=== PATIENT | female | born 1990 | race Caucasian/White ===

== ENCOUNTER 2018-02-28 19:49 | Emergency (ER) | payer OTHER ==
[2018-02-28 20:05] VITALS: BP 124/77; PULSE 85; TEMP 98.6; BMI 26.6
--- NOTE | 2018-02-28 20:06 | PDOC ---
Rapid Medical Evaluation Time Seen by Provider: 02/28/18 20:02 Medical Evaluation: Allergies Allergy/AdvReac Type Severity Reaction Status Date / Time No Known Allergies Allergy Verified 01/29/16 21:14 02/28/18 20:02 The patient presents with a chief complaint of: sinus pressure nasal congestion now pressure to cheeks and teeth, no fever I have performed a brief in-person evaluation of this patient; Pertinent physical exam findings: vss, no frontal sinus tenderness, pharynx clear I have ordered the following: none The patient will proceed to the ED for further evaluation. Discharge Disposition - Diagnosis Nasal congestion - Referrals - Patient Instructions - Post Discharge Activity
[2018-02-28] MEDS ORDERED: IBUPROFEN 600 MG TABLET (FP) PO ONE ×2 (20:38→20:46)
[2018-02-28] MEDS ORDERED: PSEUDOEPHEDRINE HCL 30 MG TABLET PO ONE (20:45)
--- NOTE | 2018-02-28 21:30 | PDOC ---
History of Present Illness - General Chief Complaint: Cold Symptoms Stated Complaint: FACIAL PAIN/FEVER Time Seen by Provider: 02/28/18 20:02 History Source: Patient Exam Limitations: No Limitations Past History - Past Medical History Allergies/Adverse Reactions: Allergies Allergy/AdvReac Type Severity Reaction Status Date / Time No Known Allergies Allergy Verified 02/28/18 20:05 Home Medications: Ambulatory Orders Fluticasone Prop 0.05% Nasal [Flonase -] 1 - 2 spray NS DAILY #1 spray.pump Pseudoephedrine HCl [Sudafed] 30 mg PO DAILY PRN #20 tablet 02/28/18 Anemia: Yes Asthma: No Cancer: No Cardiac Disorders: No Diabetes: No HTN: No Seizures: No Thyroid Disease: No - Suicide/Smoking/Psychosocial Hx Smoking History: Never smoked Have you smoked in the past 12 months: No Information on smoking cessation initiated: No Hx Alcohol Use: No Drug/Substance Use Hx: No Hx Substance Use Treatment: No *Physical Exam - Vital Signs Last Vital Signs Temp Pulse Resp BP Pulse Ox 98.6 F 85 18 124/77 100 02/28/18 20:01 02/28/18 20:01 02/28/18 20:01 02/28/18 20:01 02/28/18 20:01 - Physical Exam HEENT: positive: SAUL, Normal Voice, Nasal Congestion, Rhinorrhea, Sinus Tenderness (Along R maxillary sinus). negative: Muffled/Hoarse voice, Tonsillar Exudate, Tonsillar Erythema, TM Bulging, TM Dull, TM Erythema Neck: positive: Supple Respiratory/Chest: positive: Lungs Clear, Normal Breath Sounds. negative: Respiratory Distress Cardiovascular: positive: Regular Rhythm, Regular Rate, S1, S2. negative: Murmur Integumentary: positive: Normal Color. negative: Rash Neurologic: positive: Fully Oriented, Alert, Normal Mood/Affect Moderate Sedation - Procedure Monitoring Vital Signs: Procedure Monitoring Vital Signs Temperature 98.6 F 02/28/18 20:01 Pulse Rate 85 02/28/18 20:01 Respiratory Rate 18 02/28/18 20:01 Blood Pressure 124/77 02/28/18 20:01 O2 Sat by Pulse Oximetry (%) 100 02/28/18 20:01 ED Treatment Course - Medications Given in the ED: ED Medications Discontinued Medications Generic Name Dose Route Start Last Admin Trade Name Freq PRN Reason Stop Dose Admin Ibuprofen 600 mg 02/28/18 20:38 02/28/18 20:47 Motrin - PO 02/28/18 20:39 600 mg ONCE ONE Administration Pseudoephedrine HCl 30 mg 02/28/18 20:45 02/28/18 20:56 Sudafed - PO 02/28/18 20:46 30 mg ONCE ONE Administration Medical Decision Making - Medical Decision Making 27 y/o F with no sig pmh presents with congestion since 4 days ago, now radiating to R ear and teeth from today. Also has mild dry cough and rhinorrhea. Has been using Tylenol, vicks, Theraflu, humidifier and inhaling steam without much relief of sxs. Denies fever, sob, cp, abd pain, n/v PE consistent with likely viral sinusitis Given Sudafed, Motrin with improvement in sxs Supportive care discussed Stable for d/c 02/28/18 21:21 *DC/Admit/Observation/Transfer Diagnosis at time of Disposition: Nasal congestion, Viral sinusitis - Discharge Dispostion Disposition: HOME Condition at time of disposition: Improved Decision to Admit order: No - Prescriptions Prescriptions: Fluticasone Prop 0.05% Nasal [Flonase -] 1 - 2 spray NS DAILY #1 spray.pump Pseudoephedrine HCl [Sudafed] 30 mg PO DAILY PRN #20 tablet PRN Reason: congestion - Referrals - Patient Instructions Printed Discharge Instructions: DI for Sinusitis Additional Instructions: Thank you for choosing [facility]. It was a pleasure taking care of you. You may take Tylenol 650 mg or Motrin 600 mg every 4 hours by mouth as needed for mild to moderate pain. Take Motrin with food. Do not take more than 4000 mg of Tylenol in 1 day. Use saline nasal spray daily in each nose Also use Nedi-pot to help alleviate congestion Use Flonase as directed - use for 1 week Use Sudafed as needed to help relieve congestion Return to the Emergency Department if your symptoms worsen or persist or any other concerning symptoms. - Post Discharge Activity
== END 2018-02-28 21:41 | disposition home or self-care (01) ==
LOC: JERFT 19:49
DX: O60.00 Preterm labor without delivery, unspecified trimester (principal)
CPT/HCPCS: 99281-25

== ENCOUNTER 2019-04-17 14:03 | Emergency (ER) | payer OTHER ==
--- NOTE | 2019-04-17 14:21 | PDOC ---
Rapid Medical Evaluation Chief Complaint: Vaginal Bleeding Time Seen by Provider: 04/17/19 14:19 Medical Evaluation: Allergies Allergy/AdvReac Type Severity Reaction Status Date / Time No Known Allergies Allergy Verified 02/28/18 20:05 04/17/19 14:19 29 year old female c/o vaginal spotting ? after urinating. now with back pain. denies urinary symptoms, flank pain LMP: 11/28/2018 Pe: PATIENT alert ox3 P: UA Urine culture Discharge Disposition - Diagnosis Vaginal bleeding - Referrals - Patient Instructions - Post Discharge Activity
[2019-04-17 14:24] VITALS: TEMP 98.3; BMI 32.2
[2019-04-17 15:54] LABS: EPI CELLS 2.6 /HPF (0-5/HPF); HYALINE CASTS 1 /lpf (0-8); PH,URINE 5.5 (5.0-8.0); URINE APPEARANCE CLEAR; URINE BACTERIA 127.8 /hpf (NEGATIVE); URINE BILIRUBIN NEGATIVE (NEGATIVE); URINE COLOR YELLOW; URINE GLUCOSE (UA) NEGATIVE (NEGATIVE); URINE KETONE NEGATIVE (NEGATIVE); URINE LEUK ESTERASE TRACE (NEGATIVE); URINE NITRITE NEGATIVE (NEGATIVE); URINE PROTEIN NEGATIVE (NEGATIVE); URINE RBC 4 /hpf (0-4); URINE UROBILINOGEN 0.2 mg/dL (0.2-1.0); URINE WBC 2 /hpf (0-5)
--- NOTE | 2019-04-17 18:29 | PDOC ---
Documentation entered by Shyla Davidson SCRIBE, acting as scribe for Kelvin Evangelista MD. Kelvin Evangelista MD: This documentation has been prepared by the Stuart angela Nirvannie, SCRIBE, under my direction and personally reviewed by me in its entirety. I confirm that the documentation accurately reflects all work, treatment, procedures, and medical decision making performed by me. History of Present Illness - General Chief Complaint: Vaginal Bleeding Stated Complaint: VAGINAL BLEEDING Time Seen by Provider: 04/17/19 14:19 History Source: Patient Exam Limitations: No Limitations - History of Present Illness Initial Comments: 04/17/19 16:20 The patient is a 29 year old 19 weeks female, with a significant past medical history of, who presents to the emergency department s/p episode of vaginal bleeding. As per patient, she went to the bathroom at work and upon wiping she noticed a streak of blood. 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 While in the ED, patient notes there was not any blood on her pad and mild lower back pain. Patient notes white vaginal discharge throughout her pregnancies. She denies recent fevers, chills, headache or dizziness. She denies recent nausea, vomit, diarrhea or constipation. She denies recent dysuria, frequency, or urgency.. She denies recent chest pain or shortness of breath. Allergies: [facility] Primary Care Physician: Dr. Guzman Past History - Past Medical History Allergies/Adverse Reactions: Allergies Allergy/AdvReac Type Severity Reaction Status Date / Time No Known Allergies Allergy Verified 02/28/18 20:05 Home Medications: Ambulatory Orders Fluticasone Prop 0.05% Nasal [Flonase -] 1 - 2 spray NS DAILY #1 spray.pump Pseudoephedrine HCl [Sudafed] 30 mg PO DAILY PRN #20 tablet 02/28/18 Cephalexin Monohydrate [Keflex -] 500 mg PO BID #14 capsule 04/17/19 Clotrimazole [[id number]-6] 45 gm VG DAILY #1 cream.appl 04/17/19 Anemia: Yes Asthma: No Cancer: No Cardiac Disorders: No COPD: No Diabetes: No HTN: No Seizures: No Thyroid Disease: No - Psycho Social/Smoking Cessation Hx Smoking History: Never smoked Have you smoked in the past 12 months: No Information on smoking cessation initiated: No Hx Alcohol Use: No Drug/Substance Use Hx: No Hx Substance Use Treatment: No Review of Systems - Review of Systems Able to Perform ROS?: Yes Comments:: 04/17/19 16:20 CONSTITUTIONAL: No reported: Fever, Chills, Diaphoresis, Generalized Weakness, Malaise, Loss of Appetite HEENT: No reported: Rhinorrhea, Nasal Congestion, Throat Pain, Throat Swelling, Difficulty Swallowing, Mouth Swelling, Ear Pain, Eye Pain, Visual Changes CARDIOVASCULAR: No reported: Chest Pain, Syncope, Palpitations, Irregular Heart Rate, Lightheadedness, Peripheral Edema RESPIRATORY: No reported: Cough, Shortness of Breath, SOB with Exertion, Orthopnea, Wheezing , Stridor, Hemoptysis GASTROINTESTINAL: No reported: Abdominal pain, Abdominal Distension, Nausea, Vomiting, Diarrhea, Constipation, Melena, Hematochezia GENITOURINARY: Present: Vaginal spotting. No reported: Dysuria, Frequency, Urgency, Hesitancy, Flank Pain, Genital Pain MUSCULOSKELETAL: Present: Back pain. No reported: Myalgia, Arthralgia, Joint Swelling, Neck Pain SKIN: No reported: Rash, Itching, Pallor HEMEATOLOGIC/IMMUNOLOGIC: No reported: Easy Bleeding, Easy Bruising, Lymphadenopathy, Frequent infections ENDOCRINE: No reported: Unexplained Weight Gain, Unexplained Weight Loss, Heat Intolerance , Cold Intolerance NEUROLOGIC: No reported: Headache, Focal Weakness, Paresthesias, Vertigo, Lightheadedness, Unsteady Gait, Seizure, Mental Status Changes, Incontinence PSYCHIATRIC: No reported: Anxiety, Depression All Other Systems: Reviewed and Negative *Physical Exam - Vital Signs Last Vital Signs Temp Pulse Resp BP Pulse Ox 98.3 F 75 18 111/65 100 04/17/19 14:18 04/17/19 14:18 04/17/19 14:18 04/17/19 14:18 04/17/19 14:18 - Physical Exam 04/17/19 16:22 GENERAL: The patient is awake, alert, and fully oriented, Nontoxic - in no acute distress. HEAD: Normocephalic, atraumatic. EYES: extraocular movements intact, sclera anicteric, conjunctiva clear. ENT: Normal voice, Moist mucous membranes. NECK: Normal range of motion, supple LUNGS: Breath sounds equal, clear to auscultation bilaterally. No wheezes, no rhonchi, no rales. HEART: Regular rate and rhythm, without murmur, rub or gallop. 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 No cyanosis. No erythema, or tenderness. NEUROLOGICAL: No facial assymetry, Normal speech, PSYCH: Normal mood, normal affect. SKIN: Warm, Dry, normal turgor, ED Treatment Course - ADDITIONAL ORDERS Additional order review: Laboratory Results 04/17/19 04/17/19 04/17/19 15:40 15:15 15:15 Beta HCG, Quant 79401.8 Urine Color Yellow Urine Appearance Clear Urine pH 5.5 Ur Specific Gila 1.024 Urine Protein Negative Urine Glucose (UA) Negative Urine Ketones Negative Urine Blood 1+ H Urine Nitrite Negative Urine Bilirubin Negative Urine Urobilinogen 0.2 Ur Leukocyte Esterase Trace Urine WBC (Auto) 2 Urine RBC (Auto) 4 Urine Casts (Auto) 1 U Epithel Cells (Auto) 2.6 Urine Bacteria (Auto) 127.8 Blood Type A POSITIVE Antibody Screen Negative - RADIOLOGY Radiology Studies Ordered: Category Date Time Status LIMITED US [US] Stat Ultrasound 04/17/19 15:01 Completed Medical Decision Making - Medical Decision Making 04/17/19 18:22 The patient's discharge is consistent with a yeast infection we will treat her with Chlortrimazole topically x7 days will also tret pt for a UTI, +true clean catc, +bacteruria The patient's Ultrasound was noted for a single IUP At approximately 20 weeks heart rate of 132 I discussed the physical exam findings, ancillary test results and final diagnoses with the patient. I answered all of the patient's questions. The patient was satisfied with the care received and felt comfortable with the discharge plan and treatment plan. The patient will call their primary care physician within 24 hours to arrange follow-up and will return to the Emergency Department with any new, persistent or worsening symptoms. Discharge - Discharge Information Problems reviewed: Yes Clinical Impression/Diagnosis: Yeast infection Urinary tract infection Qualifiers: Urinary tract infection type: site unspecified Hematuria presence: with hematuria Qualified Code(s): N39.0 - Urinary tract infection, site not specified ; R31.9 - Hematuria, unspecified Qualifiers: Weeks of gestation: 20 weeks Qualified Code(s): Z3A.20 - 20 weeks gestation of Condition: Improved Disposition: HOME - Admission No - Additional Discharge Information Prescriptions: Cephalexin Monohydrate [Keflex -] 500 mg PO BID #14 capsule Clotrimazole [Sajo-Bgmqgato-0] 45 gm VG DAILY #1 cream.appl - Follow up/Referral Referrals: Sharla Guzman NP [Primary Care Provider] - - Patient Discharge Instructions - Post Discharge Activity
[2019-04-17 19:26] VITALS: BP 101/66; PULSE 64
== END 2019-04-17 19:26 | disposition home or self-care (01) ==
LOC: JER 14:03
DX: N39.0 Urinary tract infection, site not specified (principal); B37.9 Candidiasis, unspecified; Z3A.20 20 weeks gestation of pregnancy
CPT/HCPCS: 36415; 76815-TC; 81003; 84702; 86850; 86900; 86901; 87086; 87491; 87591; 99283-25

== ENCOUNTER 2019-08-31 20:49 | Inpatient (IN) | payer OTHER ==
[2019-09-01] MEDS ORDERED: AMPICILLIN - 2 GM in SODIUM CHLORIDE 100 ML IVPB ONE (00:23)
[2019-09-01] MEDS ORDERED: ELECTROLYTE-148 SOLN 1,000 ML IV SCH (00:30)
--- NOTE | 2019-09-01 00:34 | HP ---
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: Alzheimer's, CVA, Dementia, Migraine, Multiple Sclerosis, Peripheral Neuropathy, Parkinson's, Seizure, Syncope, TIA, Vertigo, Other Cardiovascular: No: AFIB, Aneurysm, Aortic Insufficiency, Aortic Stenosis, CAD, CHF, Deep Vein Thrombosis, HTN, Hyperlipdemia, AR, Mitral Insufficiency, Mitral Stenosis, Murmur, Pulmonary Hypertension, Other Pulmonary: No: Asthma, Bronchitis, Cancer, COPD, O2 Dependent, Pneumonia, Previously Intubated, Pulmonary Embolus, Pulmonary Fibrosis, Sleep Apnea, Other Gastrointestinal: No: Ascites, Cancer, Constipation, Crohn's Disease, Diverticulitis, Diverticulosis, Esophageal Varices, Gastritis, GERD, GI Bleed, Hemorrhoids, Hiatal Hernia, Inflamatory Bowel Disease, Irritable Bowel Disease, Pancreatitis, Peptic Ulcer Disease, Ulcerative Colitis, Other Hepatobiliary: No: Cirrhosis, Cholelithiasis, Cholecystitis, Choledocholithiasis, Hepatitis A, Hepatitis B, Hepatitis C, Other Renal/: No: Renal Failure, Renal Inusuff, BPH, Cancer, Hematuria, Hemodialysis, Neurogenic Bladder, Renal Calculi, UTI, Other Reproductive: No: Ectopic , Endometriosis, Fibroids, PID, Polycystic Ovary Syndrome, Postmenopausal, Other ...: 2 ...Para: 1 ...Term: 1 ...: 0 ...Spon : 0 ...Induced : 0 ...Living Children: 1 ...LMP: 11/30/18 ... Weeks Gestation by Dates: 39.1 ...EDC by Dates: 09/06/19 ...EDC by Sono: 09/06/19 Heme/Onc: No: Anemia, B12 Deficiency, Bleeding Disorder, Cancer, Current Chemotherapy, Current Radiation Therapy, Hemochromatosis, Hypercoaguable State, Myeloproliferative Synd, Sickle Cell Disease, Sickle Cell Trait, Thrombocytopenia, Other Infectious Disease: No: AIDS, C-Diff, Herpes Zoster, HIV, MRSA, STD's, Tuberculosis, VREF, Other Psych: No: Addictions, Anxiety, Bipolar, Depression, Panic, Psychosis, Schizophrenia, Other Musculoskeletal: No: Bursitis, Chronic low back pain, Hemiparesis, Hemiplegia, Osteoarthritis, Paraplegia, Other Rheumatology: No: Fibromyalgia, Gout, Lupus, Rheumatoid Arthritis, Sarcoidosis, Vasculitis, Other ENT: No: Allergic Rhinitis, Sinusitis, Other Endocrine: No: Kayode's Disease, [place]'s Disease, Diabetes Insipidus, Diabetes Mellitus, Hyperparathyroidism, Hyperthyroidism, Hypothyroidism, Osteopenia, SIADH, Other Dermatology: No: Basal Cell, Cellulitis, Eczema, Melanoma, Psoriasis, Squamous Cell, Other - Past Surgical History Past Surgical History: Yes: None Hx Myomectomy: No Hx Transabdominal Cerclage: No - Smoking History Smoking history: Never smoked Have you smoked in the past 12 months: No - Alcohol/Substance Use Hx Alcohol Use: No Home Medications - Allergies Allergies/Adverse Reactions: Allergies Allergy/AdvReac Type Severity Reaction Status Date / Time No Known Allergies Allergy Verified 02/28/18 20:05 - Home Medications Home Medications: Ambulatory Orders Fluticasone Prop 0.05% Nasal [Flonase -] 1 - 2 spray NS DAILY #1 spray.pump 02/28/18 Pseudoephedrine HCl [Sudafed] 30 mg PO DAILY PRN #20 tablet 02/28/18 Cephalexin Monohydrate [Keflex -] 500 mg PO BID #14 capsule 04/17/19 Clotrimazole [Crvh-Yhubuejg-7] 45 gm VG DAILY #1 cream.appl 04/17/19 Family Medical History Family History: Unremarkable Review of Systems Findings/Remarks: labor pain - Review of Systems Constitutional: reports: No Symptoms Eyes: reports: No Symptoms HENT: reports: No Symptoms Neck: reports: No Symptoms Cardiovascular: reports: No Symptoms Respiratory: reports: No Symptoms Gastrointestinal: reports: No Symptoms Genitourinary: reports: No Symptoms Breasts: reports: No Symptoms Reported Musculoskeletal: reports: No Symptoms Integumentary: reports: No Symptoms Neurological: reports: No Symptoms Endocrine: reports: No Symptoms Hematology/Lymphatic: reports: No Symptoms Psychiatric: reports: No Symptoms Physical Exam - Maternity Vital Signs: Vital Signs Temperature 98.1 F 08/31/19 21:25 Pulse Rate 73 08/31/19 21:25 Respiratory Rate 18 08/31/19 21:25 Blood Pressure 123/76 08/31/19 21:25 O2 Sat by Pulse Oximetry (%) Constitutional: Yes: Well Nourished HENT: Yes: Atraumatic Neck: Yes: Supple Cardiovascular: Yes: Regular Rate and Rhythm - Abdominal Exam/OB Number of Fetuses: Single Presentation: Vertex Contractions: Yes Regularity: Regular Intensity: Mod/Strong Monitor Mode: External Heart Rate (range): 130 Category: I Accelerations: Uniform Decelerations: None - Vaginal Exam/OB Speculum Exam: No Dilatation (cm): 4.5 Effacement (%): 90 Amniotic Membrane Status: Intact Presentation: Vertex/Position Station: -3 - Physical Exam Musculoskeletal: Yes: WNL Extremities: Yes: WNL (varicosities) Edema: Yes Edema: LLE: 1+, RLE: 1+ Integumentary: Yes: WNL Deep Tendon Reflex Grade: Normal +2 ...Motor Strength: WNL Psychiatric: Yes: Alert, Oriented Imaging - Results Ultrasound: Report Reviewed Assessment/Plan 29 y/o @ 39.2wks, GBS +, active labor, reassuring status -Admit and expectant management -GBS prophylaxis -Pain control PRN
[2019-09-01] MEDS ORDERED: AMPICILLIN SODIUM 2 GM VIAL ONE (00:53)
[2019-09-01] MEDS ORDERED: SODIUM CHLORIDE 100 ML IVPB ONE (00:53)
[2019-09-01] MEDS ORDERED: OXYTOCIN 20 UNITS in 0.9% NS 20 UNIT/1,000 ML INFUS.BAG IV ONE (00:55)
--- NOTE | 2019-09-01 00:58 | PN ---
Ante-Partal Exam - Subjective Subjective: patient evaluated for pain Vital Signs: Vital Signs Temperature 98.1 F 08/31/19 21:25 Pulse Rate 73 08/31/19 21:25 Respiratory Rate 18 08/31/19 21:25 Blood Pressure 123/76 08/31/19 21:25 O2 Sat by Pulse Oximetry (%) Headache: No Visual changes: No Right upper quadrant pain: No - Contractions Contractions: Yes Regularity: Regular Intensity: Strong Monitor Mode: External - Exam during Labor Heart Rate: 140 Variability: Moderate Category: I Monitor Accelerations: Present Monitor Decelerations: None Exam: Vaginal Dilatation (cm): 7 Effacement (%): 90 Station: -1 Remarks: asynclitic - Assessment/Plan Assessment/Plan: 29 y/o @ 39.2wks, active labor, FHT is reassuring, labs and IV access pending due to logistical reason -GBS prophylaxis -labs -epidural is ok
[2019-09-01] MEDS ORDERED: BENZOCAINE 20% 57 GM BOTTLE TP PRN (01:34)
[2019-09-01] MEDS ORDERED: WITCH HAZEL 50% (TUCKS) 40 PAD/JAR PAD TP PRN (01:34)
[2019-09-01] MEDS ORDERED: BENZOCAINE 28 GM HEMORRHOIDAL OINTMENT TP PRN (01:34)
[2019-09-01] MEDS ORDERED: BISACODYL 10 MG SUPP.RECT RC PRN (01:34)
--- NOTE | 2019-09-01 01:34 | PN ---
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 No Nuchal cord and shoulders delivered without difficulty. Umbilical cord clamped and cut, sample for blood obtained. Placenta delivered spontaneously and intact, 3 vc. Exam revealed excellent hemostasis and no lacerations. small periurethral abrasions noted. 1000mcg misoprostol administered MD prophylactically. Sponge/instrument count correct x 2 and confirmed by nurse.
[2019-09-01] MEDS ORDERED: MISOPROSTOL 100 MCG TABLET PV ONE (01:35)
[2019-09-01] MEDS ORDERED: OXYTOCIN 20 UNITS in 0.9% NS 20 UNIT/1,000 ML INFUS.BAG IV SCH (01:45)
[2019-09-01 04:08] LABS: BASO % 0.4 % (0-2.0); EOS % 0.1 % (0-4.5); HEMATOCRIT 34.2 % (32.4-45.2); HEMOGLOBIN 11.1 GM/dL (10.7-15.3); LYMPH % 8.3 % (8-40); MCH 27.4 pg (25.7-33.7); MCHC 32.5 g/dl (32.0-36.0); MEAN CELL VOLUME 84.3 fl (80-96); MEAN PLT VOLUME 8.3 fl (7.5-11.1); NEUT % 88.2 % (42.8-82.8); PLATELET COUNT 392 K/MM3 (134-434); RBC 4.06 M/mm3 (3.60-5.2); RDW 13.9 % (11.6-15.6); WHITE BLOOD COUNT 14.9 K/mm3 (4.0-10.0)
[2019-09-01] MEDS ORDERED: IBUPROFEN 600 MG TABLET (FP) PO ONE (04:08)
[2019-09-01] MEDS: IBUPROFEN 600 MG TABLET (FP) PO PRN ×3 (04:10→16:04)
[2019-09-01 04:17] VITALS: BMI 34.6
[2019-09-01] MEDS ORDERED: AMPICILLIN - 1 GM in SODIUM CHLORIDE 100 ML IVPB SCH (04:23)
[2019-09-01 04:26] LABS: INR 0.88 (0.83-1.09); PROTHROMBIN TIME (PATIENT) 10.4 SEC (9.7-13.0)
[2019-09-01 04:29] LABS: ACTIVATED PTT 29.2 SECONDS (25.2-36.5)
[2019-09-01 04:34] LABS: CALCIUM 8.5 mg/dL (8.5-10.1); CREATININE 0.8 mg/dL (0.55-1.3); POTASSIUM 4.7 mmol/L (3.5-5.1)
[2019-09-01] MEDS ORDERED: MISOPROSTOL 100 MCG TABLET NR ONE (08:00)
[2019-09-01] MEDS: ACETAMINOPHEN 325 MG TABLET (FP) PO PRN (16:05)
[2019-09-02] MEDS: IBUPROFEN 600 MG TABLET (FP) PO PRN (05:14)
[2019-09-02] MEDS: ACETAMINOPHEN 325 MG TABLET (FP) PO PRN (05:14)
[2019-09-02 08:56] LABS: BASO % 0.4 % (0-2.0); EOS % 1.8 % (0-4.5); HEMOGLOBIN 10.1 GM/dL (10.7-15.3); LYMPH % 25.6 % (8-40); MCH 27.7 pg (25.7-33.7); MCHC 32.5 g/dl (32.0-36.0); MEAN CELL VOLUME 85.3 fl (80-96); MEAN PLT VOLUME 7.7 fl (7.5-11.1); NEUT % 65.2 % (42.8-82.8); PLATELET COUNT 370 K/MM3 (134-434); RBC 3.63 M/mm3 (3.60-5.2); RDW 14.2 % (11.6-15.6); WHITE BLOOD COUNT 13.3 K/mm3 (4.0-10.0)
--- NOTE | 2019-09-02 11:29 | DS ---
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 Gender: Female Weight: 6 lb 12 oz Position: OA Total Hours ROM (Hrs/Mins): 0/2 - 1 Minute Total Score: 9 5 Minutes Total Score: 9 - Feeding Plan Initial Plan: Exclusive throughout hospitalization Remarks - Remarks Remarks: ppd #1 stable discharge today Discharge Summary Problems reviewed: Yes Reason For Visit: LABOR ADMIT Current Active Problems with 39 completed weeks gestation (Acute) Vaginal delivery (Acute) Condition: Stable - Instructions Diet, Activity, Other Instructions: Discharge Instructions * Out of Bed * * Regular Diet * Lucila Care * Avoid sex for 6 weeks * rtc 3 weeks pp check * continue Vitamin daily & on iron pill daily If you experience excessive bleeding or fever over 101 degrees, call doctor, the clinic or go to the Emergency Room. Referrals: Varun Miller MD [Staff Physician] - Disposition: HOME - Home Medications Comprehensive Discharge Medication List: Ambulatory Orders Acetaminophen [Tylenol .Regular Strength -] 650 mg PO Q3H PRN tablet 09/02/19 Ibuprofen [Motrin -] 200 mg PO Q6H PRN tablet 09/02/19 No115/Iron/Folic Acid [ 19 Chewable Tablet] 1 each PO DAILY #30 tab.chew 09/02/19
[2019-09-02 11:39] VITALS: BP 115/69; PULSE 77; TEMP 97.4
[2019-09-02] MEDS ORDERED: SENNOSIDES/DOCUSATE COMBO (SENNA PLUS) TABLET (UD) PO PRN (22:00)
== END 2019-09-02 12:50 | disposition home or self-care (01) | DRG 560 ==
LOC: JDEL 20:49 → JLDR 23:45 → J3W 09-01 04:43
PROVIDERS: ADMIT Student in an Organized Health Care Education/Training Program; ATTEND Student in an Organized Health Care Education/Training Program
PROC: 10E0XZZ Delivery of Products of Conception, External Approach (ICD-10-PCS; principal; 2019-09-01)
DX: O80 Encounter for full-term uncomplicated delivery (principal); Z3A.39 39 weeks gestation of pregnancy; Z22.330 Carrier of Group B streptococcus; Z37.0 Single live birth
CPT/HCPCS: 36415; 59409; 80048; 85025; 85610; 85730; 86780; 86850; 86900; 86901; U0003

== ENCOUNTER 2020-10-07 10:05 | Emergency (ER) | payer OTHER ==
[2020-10-07 10:44] VITALS: BP 112/80; PULSE 72; TEMP 98.1; BMI 32.2
[2020-10-07] MEDS ORDERED: LIDOCAINE 5% TOPICAL PATCH TP ONE (11:02)
[2020-10-07] MEDS ORDERED: KETOROLAC TROMETHAMINE 30 MG/1 ML VIAL IM ONE (11:09)
[2020-10-07] MEDS ORDERED: LIDOCAINE 5% TOPICAL PATCH ONE (11:10)
[2020-10-07] MEDS ORDERED: KETOROLAC TROMETHAMINE 30 MG/1 ML VIAL ONE (11:16)
[2020-10-07] MEDS ORDERED: LIDOCAINE PATCH REMOVAL MC ONE (22:00)
== END 2020-10-07 12:05 | disposition home or self-care (01) ==
LOC: JERFT 10:05
PROC: 3E0233Z Introduction of Anti-inflammatory into Muscle, Percutaneous Approach (ICD-10-PCS; principal; 2020-10-07)
DX: M43.6 Torticollis (principal)
CPT/HCPCS: 99284-25

== ENCOUNTER 2022-02-03 17:55 | Emergency (ER) | payer OTHER ==
[2022-02-03] MEDS ORDERED: FAMOTIDINE 20 MG/50 ML IVPB 20 MG/50 ML MG IVPB ONE ×2 (18:11→18:17)
[2022-02-03] MEDS ORDERED: ONDANSETRON 4 MG/2 ML VIAL IVPUSH ONE (18:11)
[2022-02-03] MEDS ORDERED: SODIUM CHLORIDE 0.9% 500 ML INFUS.BAG IV ONE (18:11)
[2022-02-03 18:15] VITALS: BP 108/72; PULSE 80; RESP 16; TEMP 97.9; BMI 32.2
[2022-02-03] MEDS ORDERED: ONDANSETRON 4 MG/2 ML VIAL ONE (18:17)
[2022-02-03 18:54] LABS: HEMATOCRIT 38.7 % (32.4-45.2); MCH 29.8 pg (25.7-33.7); MCHC 33.5 g/dl (32.0-36.0); MEAN CELL VOLUME 88.9 fl (80-96); PLATELET COUNT 310.2 10^3/uL (134-434); RBC 4.35 10^6/uL (3.60-5.2); WHITE BLOOD COUNT 4.8 10^3/uL (4.0-10.8)
[2022-02-03 19:03] LABS: ALBUMIN 3.5 g/dl (3.4-5.0); BILIRUBIN,TOTAL 0.3 mg/dl (0.2-1); CALCIUM 8.2 mg/dl (8.5-10); CREATININE 0.7 mg/dl (0.55-1.3)
[2022-02-03] MEDS ORDERED: POTASSIUM CHLORIDE TABS 20 MEQ TABLET.ER (FP) PO ONE ×2 (19:05→19:21)
[2022-02-03] MEDS ORDERED: MAGNESIUM SULF 50% (8.12 MEQ/2 ML-1 GM VIAL) IVPB ONE (19:41)
[2022-02-03] MEDS ORDERED: MAGNESIUM SULFATE IN WATER 2 GM/50 ML IVPB IVPB ONE (19:42)
[2022-02-03] MEDS ORDERED: AZITHROMYCIN 500 MG TABLET PO ONE (20:14)
[2022-02-03] MEDS ORDERED: AZITHROMYCIN 500 MG TABLET ONE (20:18)
== END 2022-02-03 20:27 | disposition home or self-care (01) ==
LOC: FER 17:55
PROC: 3E033GC Introduction of Other Therapeutic Substance into Peripheral Vein, Percutaneous Approach (ICD-10-PCS; principal; 2022-02-03)
PROC: 3E033GC Introduction of Other Therapeutic Substance into Peripheral Vein, Percutaneous Approach (ICD-10-PCS; 2022-02-03)
PROC: 3E033GC Introduction of Other Therapeutic Substance into Peripheral Vein, Percutaneous Approach (ICD-10-PCS; 2022-02-03)
DX: R11.2 Nausea with vomiting, unspecified (principal); J01.90 Acute sinusitis, unspecified
CPT/HCPCS: 0241U-QW; 36415; 76705-TC; 80053; 81025; 85027; 99284-25

== ENCOUNTER 2022-06-14 22:59 | Emergency (ER) | payer OTHER ==
[2022-06-14 23:28] VITALS: BP 113/79; PULSE 76; RESP 18; TEMP 98.3; BMI 33.2
[2022-06-14] MEDS ORDERED: KETOROLAC TROMETHAMINE 30 MG/1 ML VIAL IM ONE (23:43)
[2022-06-15] MEDS ORDERED: KETOROLAC TROMETHAMINE 30 MG/1 ML VIAL ONE (00:03)
== END 2022-06-15 01:42 | disposition home or self-care (01) ==
LOC: JER 22:59
DX: M25.561 Pain in right knee (principal)
CPT/HCPCS: 73562-TC-RT-FY; 99283-25

== ENCOUNTER 2022-07-13 16:10 | Emergency (ER) | payer OTHER ==
[2022-07-13 16:21] VITALS: BP 120/78; PULSE 77; RESP 18; TEMP 98; BMI 32.5
[2022-07-13] MEDS ORDERED: SODIUM CHLORIDE 1,000 ML IV SCH (17:00)
[2022-07-13 18:12] LABS: BASO % 0.9 % (0-2.0); EOS % 1.1 % (0-4.5); HEMATOCRIT 37.6 % (32.4-45.2); HEMOGLOBIN 12.5 GM/dL (10.7-15.3); LYMPH % 32.2 % (8-40); MCH 28.4 pg (25.7-33.7); MCHC 33.3 g/dl (32.0-36.0); MEAN CELL VOLUME 85.3 fl (80-96); MEAN PLT VOLUME 6.7 fl (7.5-11.1); MONO % 7.3 % (3.8-10.2); NEUT % 58.5 % (42.8-82.8); PLATELET COUNT 425 10^3/uL (134-434); RBC 4.41 M/mm3 (3.60-5.2); RDW 13.6 % (11.6-15.6); WHITE BLOOD COUNT 6.7 K/mm3 (4.0-10.0)
[2022-07-13 18:19] LABS: INR 0.99 (0.83-1.09); PROTHROMBIN TIME (PATIENT) 11.5 SEC (9.7-13.0)
[2022-07-13 18:21] LABS: ACTIVATED PTT 32.1 SECONDS (25.2-36.5)
[2022-07-13 18:31] LABS: CHLORIDE 104 mmol/L (98-107); POTASSIUM 4.8 mmol/L (3.5-5.1); SODIUM 135 mmol/L (136-145)
[2022-07-13 18:32] LABS: CALCIUM 8.5 mg/dL (8.5-10.1)
[2022-07-13 18:33] LABS: ALBUMIN 3.3 g/dl (3.4-5.0); ANION GAP 4 MMOL/L (8-16); CO2 27 mmol/L (21-32)
[2022-07-13 18:34] LABS: BLOOD UREA NITROGEN 18.4 mg/dL (7-18); GLUCOSE,RANDOM 91 mg/dL (74-106)
[2022-07-13 18:36] LABS: CREATININE 0.8 mg/dL (0.55-1.3); SGOT/AST 31 U/L (15-37); SGPT/ALT 20 U/L (13-61)
[2022-07-13 18:38] LABS: CHOLESTEROL 120 mg/dL (50-200); TOT PROT 7.6 g/dl (6.4-8.2)
[2022-07-13 18:39] LABS: BILIRUBIN,TOTAL 0.4 mg/dL (0.2-1); LDL CHOLESTEROL (ONLY SJRH) 75 mg/dL (5-100)
[2022-07-13 18:40] LABS: ALK PHOS 51 U/L (45-117); HDL CHOLESTEROL 46 mg/dL (40-60)
[2022-07-13 19:05] LABS: EPI CELLS 6 /uL (0-25.1); HYALINE CASTS 0 /uL (0-3.1); PH,URINE 6.5 (5.0-8.0); URINE APPEARANCE CLEAR; URINE BACTERIA 29 /uL (0-1359); URINE BILIRUBIN NEGATIVE (NEGATIVE); URINE COLOR YELLOW; URINE GLUCOSE (UA) NEGATIVE (NEGATIVE); URINE KETONE NEGATIVE (NEGATIVE); URINE LEUK ESTERASE NEGATIVE (NEGATIVE); URINE NITRITE NEGATIVE (NEGATIVE); URINE PROTEIN NEGATIVE (NEGATIVE); URINE RBC 58 /uL (0-23.9); URINE UROBILINOGEN 0.2 mg/dL (0.2-1.0); URINE WBC 3 /uL (0-25.8)
== END 2022-07-13 21:51 | disposition home or self-care (01) ==
LOC: JER 16:10
DX: R20.2 Paresthesia of skin (principal); R20.8 Other disturbances of skin sensation
CPT/HCPCS: 36415; 70450-TC; 70496-TC; 70498-TC; 80053; 80061; 81003; 82550; 83036; 84484; 85025; 85610; 85730; 93005; 93010; 99285-25

== ENCOUNTER 2024-03-21 12:21 | Emergency (ER) | payer OTHER ==
[2024-03-21 12:48] VITALS: TEMP 101; BMI 32.2
[2024-03-21] MEDS ORDERED: ONDANSETRON 4 MG/2 ML VIAL ONE (13:04)
[2024-03-21] MEDS ORDERED: FAMOTIDINE 20 MG/50 ML IVPB 20 MG/50 ML MG IVPB ONE (13:04)
[2024-03-21] MEDS ORDERED: ACETAMINOPHEN INJECTION 100 ML ONE (13:04)
[2024-03-21 14:09] LABS: BASO % 0.3 % (0-2.0); EOS % 0.2 % (0-4.5); HEMATOCRIT 40.2 % (32.4-45.2); HEMOGLOBIN 13.3 GM/dL (10.7-15.3); LYMPH % 15.8 % (8-40); MCH 29.2 pg (25.7-33.7); MCHC 33.1 g/dl (32.0-36.0); MEAN CELL VOLUME 88.1 fl (80-96); NEUT % 74.7 % (42.8-82.8); PLATELET COUNT 311 10^3/uL (134-434); RBC 4.57 M/mm3 (3.60-5.2); RDW 13.1 % (11.6-15.6)
[2024-03-21 14:27] LABS: POTASSIUM 4.4 mmol/L (3.5-5.1)
[2024-03-21 14:30] LABS: CALCIUM 8.7 mg/dL (8.5-10.1)
[2024-03-21 14:31] LABS: ALBUMIN 3.3 g/dl (3.4-5.0); MAGNESIUM 1.8 mg/dL (1.8-2.4)
[2024-03-21] MEDS: SODIUM CHLORIDE 1,000 ML IV STA (14:33)
[2024-03-21 14:34] LABS: CREATININE 0.7 mg/dL (0.55-1.3)
[2024-03-21] MEDS: ONDANSETRON 4 MG/2 ML VIAL IVPUSH ONE (14:34)
[2024-03-21] MEDS: ACETAMINOPHEN 1000 MG/100 ML BAG IVPB ONE (14:34)
[2024-03-21] MEDS: FAMOTIDINE 20 MG/50 ML IVPB 20 MG/50 ML MG IVPB ONE (14:34)
[2024-03-21 14:35] LABS: BILIRUBIN,TOTAL 0.4 mg/dL (0.2-1); TOT PROT 7.4 g/dl (6.4-8.2)
[2024-03-21] MEDS ORDERED: AZITHROMYCIN IVPB 500 MG/250 ML BAG IVPB ONE (14:58)
[2024-03-21] MEDS ORDERED: AMOXICILLIN 500 MG CAPSULE (FP) ONE (14:58)
[2024-03-21] MEDS: AZITHROMYCIN IVPB 500 MG in DEXTROSE 5%-WATER - 250 ML IVPB ONE (15:11)
[2024-03-21] MEDS: AMOXICILLIN 500 MG CAPSULE (FP) PO ONE (15:11)
[2024-03-21 16:36] VITALS: BP 103/76; PULSE 95; RESP 14
== END 2024-03-21 16:49 | disposition home or self-care (01) ==
LOC: JER 12:21
PROC: 3E03329 Introduction of Other Anti-infective into Peripheral Vein, Percutaneous Approach (ICD-10-PCS; principal; 2024-03-21)
PROC: 3E033GC Introduction of Other Therapeutic Substance into Peripheral Vein, Percutaneous Approach (ICD-10-PCS; 2024-03-21)
PROC: 3E033NZ Introduction of Analgesics, Hypnotics, Sedatives into Peripheral Vein, Percutaneous Approach (ICD-10-PCS; 2024-03-21)
PROC: 3E033GC Introduction of Other Therapeutic Substance into Peripheral Vein, Percutaneous Approach (ICD-10-PCS; 2024-03-21)
DX: J18.9 Pneumonia, unspecified organism (principal); R11.2 Nausea with vomiting, unspecified; M79.10 Myalgia, unspecified site; R68.83 Chills (without fever); Z20.822 Contact with and (suspected) exposure to COVID-19
CPT/HCPCS: 0241U-QW; 36415; 71046-TC-FY; 80053; 83735; 85025; 93005; 93010; 99285-25; J0131

== ENCOUNTER 2024-08-12 18:44 | Emergency (ER) | payer OTHER ==
[2024-08-12 18:52] VITALS: BP 118/85; PULSE 71; RESP 18; TEMP 98.1; BMI 33.6
[2024-08-12] MEDS: MAG HYDROX/AL HYDROX/SIMETH 30 ML UNIT-DOSE CUP PO ONE (19:34)
[2024-08-12] MEDS: FAMOTIDINE 20 MG TABLET PO ONE (19:36)
[2024-08-12 20:21] LABS: ABSOLUTE IMMATURE GRANULOCYTES 0.01 x10^3/uL (0.0-0.031); BASOPHILS # 0.04 x10^3/uL (0.01-0.08); EOSINOPHIL % 2.3 % (0.7-5.8); EOSINOPHILS # 0.18 x10^3/uL (0.04-0.36); HEMOGLOBIN 12.5 g/dL (11.2-15.7); MCHC 32.1 g/dl (32.2-35.5); MEAN CELL VOLUME 89.9 fl (79.4-94.8); MEAN PLT VOLUME 8.5 fl (9.4-12.3); MONOCYTE # 0.75 x10^3/uL (0.24-0.86); MONOCYTE % 9.4 % (4.7-12.5); PLATELET COUNT 371 x10^3/uL (182-369); RDW 12.4 % (12.1-16.8)
[2024-08-12 20:58] LABS: ALBUMIN 4.1 g/dl (3.4-5.0); ALK PHOS 42 U/L (45-117); ANION GAP 10 mmol/L (4-13); BILIRUBIN,TOTAL 0.5 mg/dl (0.2-1); CALCIUM 8.9 mg/dl (8.5-10.1); CHLORIDE 101 mmol/L (98-107); CO2 26 mmol/L (21-32); CREATININE 0.8 mg/dl (0.6-1.3); GLUCOSE,RANDOM 90 mg/dl (74-106); POTASSIUM 3.8 mmol/L (3.5-5.1); SGOT/AST 12 U/L (15-37); SGPT/ALT 10 U/L (7-52); SODIUM 137 mmol/L (136-145); TOT PROT 7.1 g/dl (6.4-8.2)
== END 2024-08-12 21:38 | disposition home or self-care (01) ==
LOC: FER 18:44
DX: K21.9 Gastro-esophageal reflux disease without esophagitis (principal); R14.0 Abdominal distension (gaseous)
CPT/HCPCS: 36415; 80053; 84703; 85025; 93005; 99284-25

== ENCOUNTER 2024-11-10 11:58 | Emergency (ER) | payer OTHER ==
[2024-11-10 12:03] VITALS: TEMP 98.6; BMI 32.8
[2024-11-10 15:33] VITALS: BP 106/74; PULSE 65; RESP 16
== END 2024-11-10 15:37 | disposition home or self-care (01) ==
LOC: JER 11:58
DX: S09.90XA Unspecified injury of head, initial encounter (principal); W22.8XXA Striking against or struck by other objects, initial encounter; Y92.009 Unspecified place in unspecified non-institutional (private) residence as the place of occurrence of the external cause
CPT/HCPCS: 70450-TC; 72125-TC; 84703; 99284-25